=== PATIENT | male | born 1980 | race Caucasian/White ===

== ENCOUNTER 2017-10-12 13:04 | Emergency (ER) | payer OTHER ==
[2017-10-12 13:21] VITALS: TEMP 98.8
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
[2017-10-12] MEDS ORDERED: PROPARACAINE 0.5% 15 ML OPHT DROP OP ONE (13:46)
[2017-10-12] MEDS ORDERED: FLUORESCEIN SODIUM 1 MG STRIP OP ONE (13:51)
[2017-10-12] MEDS ORDERED: ONDANSETRON DISINTEGRATING 4 MG TAB PO ONE (14:14)
[2017-10-12 14:52] VITALS: RESP 18; O2SAT 92
[2017-10-12 15:11] VITALS: BP 121/84; PULSE 83
== END 2017-10-12 15:33 | disposition home or self-care (01) ==
DX: T59.891A Toxic effect of other specified gases, fumes and vapors, accidental (unintentional), initial encounter (principal); Z79.82 Long term (current) use of aspirin; Z86.73 Personal history of transient ischemic attack (TIA), and cerebral infarction without residual deficits